=== PATIENT | male | born 1945 | race Caucasian/White ===

== ENCOUNTER 2017-12-15 00:13 | Emergency (ER) | payer OTHER ==
[~2017-12-15] VITALS: Ht 175.3 cm; Wt 104.3 kg
[2017-12-15] MEDS ORDERED: ALLOPURINOL 10100 M1 (00:22)
[2017-12-15] MEDS ORDERED: ASPIR 8181 MG (00:23)
[2017-12-15] MEDS ORDERED: PRAVACHOL40 M1 (00:24)
[2017-12-15 00:54] VITALS: BP 142/84
== END 2017-12-15 00:55 | disposition home or self-care (01) ==
LOC: M.ERS 00:13
DX: L76.22 Postprocedural hemorrhage of skin and subcutaneous tissue following other procedure (principal); E78.00 Pure hypercholesterolemia, unspecified